=== PATIENT | male | born 1995 | race Caucasian/White ===

== ENCOUNTER 2020-08-07 21:58 | Emergency (ER) | payer OTHER ==
[~2020-08-07] VITALS: Ht 185.4 cm; Wt 91.0 kg
--- NOTE | 2020-08-07 21:58 | NUR ---
INITIAL PT CONTACT. PT BIBA C/O N/V FOLLOWING "SMOKING A LOT MORE POT THAN I'M USED TO". PT PALE AND CLAMMY UPON ARRIVAL, ACTIVELY VOMITING. PT SITTING UPRIGHT ON GURNEY, PLACED ON CONTINUOUS MONITORING. EMS GAVE 4MG ZOFRAN IM WITH MINIMAL RELIEF. PT CONTINUES TO VOMIT AND IS VERY DROWSY UPON EXAM. PT DENIES ANY NEEDS AT THIS TIME. CALL LIGHT AND PERSONAL BELONGINGS WITHIN REACH. FRIEND AT BEDSIDE. ERP AT BEDSIDE.
[2020-08-07] MEDS ORDERED: ONDANSETRON 2MG/ML, 2ML ONE (22:14)
[2020-08-07] MEDS ORDERED: ONDANSETRON 2MG/ML, 2ML IVPush ONE (22:30)
[2020-08-07] MEDS ORDERED: SODIUM CHLORIDE 0.9% 1,000ML IVBOLUS ONE (22:30)
[2020-08-07 22:34] LABS: ALANINE AMINOTRANSFERASE 35 U/L (12-78); ALBUMIN 4.1 g/dL (3.4-5.0); ANION GAP 6 mmol/L (5-15); BASOPHILS % (AUTO) 0 % (0-1); CHLORIDE 109 mmol/L (98-107); CREATININE 1.18 mg/dL (0.7-1.3); EOSINOPHILS % (AUTO) 1 % (1-7); LYMPHOCYTES % (AUTO) 29 % (22-44); MEAN CORPUSCULAR HEMOGLOBIN 28.7 pg (27.5-34.5); MEAN CORPUSCULAR HGB CONC 34.6 g/dL (33.2-36.2); MEAN PLATELET VOLUME 7.8 fL (7.4-10.4); MONOCYTES % (AUTO) 4 % (2-9); NEUTROPHILS % (AUTO) 65 % (42-75); PLATELET COUNT 302 x10^3/uL (130-400); RED BLOOD COUNT 5.82 x10^6/uL (4.38-5.82)
[2020-08-07 22:36] LABS: ALKALINE PHOSPHATASE 78 U/L (45-117); BILIRUBIN,TOTAL 0.3 mg/dL (0.2-1.0); TOTAL PROTEIN 7.8 g/dL (6.4-8.2)
--- NOTE | 2020-08-07 23:59 | NUR ---
PT AMBULAGTORY WITH STEADY GAIT TO BATHROOM. PT STATES HE FEELS BETTER AND IS READY TO RETURNED HOME. ERP AWARE.
[2020-08-08 00:12] VITALS: BP 120/80
== END 2020-08-08 00:14 | disposition home or self-care (01) ==
LOC: ED 22:00
DX: R11.2 Nausea with vomiting, unspecified (principal); E86.9 Volume depletion, unspecified; T40.7X5A Adverse effect of cannabis (derivatives), initial encounter; Y92.9 Unspecified place or not applicable
CPT/HCPCS: 36415; 80053; 83690; 85025; 96361; 96374; 99283; J2405; J7030